=== PATIENT | female | born 1955 | race Two or more races ===

== ENCOUNTER 2018-09-27 15:56 | Emergency (ER) | payer MEDICARE, MEDICAID ==
[~2018-09-27] VITALS: Ht 152.4 cm; Wt 70.0 kg
[~2018-09-27 15:56] MED LIST: ONDA8TAB9 PO
[2018-09-27] MEDS ORDERED: normal saline 1000ML IV soln IVB ONE (16:00)
[2018-09-27] MEDS ORDERED: dexamethasone sod phosphate 10mg/ml inj IV STA (16:11)
--- NOTE | 2018-09-27 16:25 | NUR ---
BP IMPROVING WITH IVF, SEE FLOWSHEET
[2018-09-27] MEDS ORDERED: SIMV10TA6 PO (16:44)
[2018-09-27] MEDS ORDERED: TOP100T PO (16:44)
[2018-09-27] MEDS ORDERED: MONT10TA24 PO (16:44)
[2018-09-27] MEDS ORDERED: TRAZ-219 PO (16:44)
[2018-09-27] MEDS ORDERED: ALEN70TA37 PO (16:44)
[2018-09-27] MEDS ORDERED: VENL75CA61 PO (16:44)
[2018-09-27] MEDS ORDERED: OLAN10TA19 PO (16:44)
[2018-09-27] MEDS ORDERED: LEVO75TA7 PO (16:44)
[2018-09-27] MEDS ORDERED: LISI-600 PO (16:44)
[2018-09-27] MEDS ORDERED: LORA10TA7 PO (16:44)
[2018-09-27 16:45] LABS: ALANINE AMINOTRANSFERASE 16 U/L (12-78); ALBUMIN 2.8 G/DL (3.4-5.0); ALKALINE PHOSPHATASE 60 IU/L (46-116); ANION GAP 10 (8-16); ASPARTATE AMINO TRANSFERASE 11 U/L (10-37); BILIRUBIN,TOTAL 0.3 MG/DL (0.1-1.0); BLOOD UREA NITROGEN 20 MG/DL (7-18); BUN/CREATININE RATIO 14.4 (6.6-38.0); CALCIUM 7.2 MG/DL (8.5-10.1); CHLORIDE 111 MMOL/L (99-107); CREATININE 1.39 MG/DL (0.40-0.90); GLUCOSE 86 MG/DL (70-104); POTASSIUM 3.3 MMOL/L (3.5-5.1); SODIUM 142 MMOL/L (135-145); TOTAL CARBON DIOXIDE 20.7 MMOL/L (24-32); TOTAL PROTEIN 5.6 G/DL (6.4-8.2); eGFR 38 ML/MIN
[2018-09-27 16:55] LABS: ETHANOL 0.016 GM/DL (0.0-0.010); MAGNESIUM 1.6 MG/DL (1.5-2.4)
[2018-09-27 17:04] LABS: INR 1.1 INR; PROTHROMBIN TIME 10.9 SECONDS (9.0-12.0)
[2018-09-27 17:15] LABS: BASOPHILS # (AUTO) 0.1 X10'3 (0-0.2); BASOPHILS % (AUTO) 0.7 % (0-1); EOSINOPHILS # (AUTO) 0.1 X10'3 (0-0.9); EOSINOPHILS % (AUTO) 0.9 % (0-6); HEMATOCRIT 36.2 % (35.0-45.0); HEMOGLOBIN 12.2 g/dl (12.0-16.0); LYMPHOCYTES # (AUTO) 3.4 X10'3 (1.1-4.8); LYMPHOCYTES % (AUTO) 31.2 % (21-51); MEAN CORPUSCULAR HEMOGLOBIN 31.8 PG (27.0-31.0); MEAN CORPUSCULAR HGB CONC 33.8 g/dL (33.0-36.5); MEAN CORPUSCULAR VOLUME 94.2 FL (78-98); MONOCYTES # (AUTO) 1.1 X10'3 (0-0.9); MONOCYTES % (AUTO) 10.4 % (2-12); NEUTROPHILS # (AUTO) 6.3 X10'3 (1.8-7.7); NEUTROPHILS % (AUTO) 56.8 % (42-75); PLATELET COUNT 352 X10'3 (140-440); RED BLOOD COUNT 3.84 X10'6 (4.20-5.60); RED CELL DISTRIBUTION WIDTH 13.4 % (11.5-14.5)
--- NOTE | 2018-09-27 18:10 | NUR ---
PT UP TO BSC WITH RN STAND BY, NO DIZZINESS OR SYNCOPE, RODRIGO WELL. UA COLLECTED AND SE3N Addendum: 09/27/18 at 1826 by RPRATHER UA SENT TO LAB
[2018-09-27 18:25] LABS: CLARITY,URINE SLIGHTLY CLOUDY (Clear); COLOR,URINE YELLOW (Yellow); GLUCOSE, URINE NEGATIVE (Neg); KETONES,URINE TRACE mg/dl (Neg); LEUKOCYTE ESTERASE ,URINE NEGATIVE (Neg); NITRITES, URINE NEGATIVE (Neg); OCCULT BLOOD,URINE NEGATIVE (Neg); PROTEIN,URINE NEGATIVE (Neg)
[2018-09-27 18:26] LABS: UA COLLECTION TYPE CLN CATCH MIDSTREAM
[2018-09-27 18:30] LABS: SQUAMOUS EPITHELIAL CELL,UR MANY /LPF (FEW)
[2018-09-27 18:32] LABS: BACTERIA,URINE 3+ /HPF (Neg); RBC,URINE 0-2 /HPF (0-2)
[2018-09-27 18:33] LABS: TRANSITIONAL EPI CELLS,URINE FEW /HPF; WBC CLUMPS,URINE FEW /HPF (NEGATIVE)
[2018-09-27] MEDS ORDERED: cephalexin 250mg capsule PO ONE (18:35)
[2018-09-27] MEDS ORDERED: CEPH500C5 PO (18:35)
[2018-09-27 18:48] VITALS: BP 118/69
== END 2018-09-27 18:53 | disposition home or self-care (01) ==
LOC: ER 15:57
DX: R55 Syncope and collapse (principal); N39.0 Urinary tract infection, site not specified; R47.81 Slurred speech; Z90.49 Acquired absence of other specified parts of digestive tract; Z79.899 Other long term (current) drug therapy; Z88.5 Allergy status to narcotic agent; Z88.8 Allergy status to other drugs, medicaments and biological substances
CPT/HCPCS: 36415; 71045; 80053; 80320; 81001; 83605; 83735; 83880; 84443; 84484; 85025; 85610; 93005; 96374; 99284; J1100; J7030

== ENCOUNTER → 2020-10-04 | Emergency (ER) | payer BC, MEDICAID ==
[~2020-10-04] VITALS: Ht 152.4 cm; Wt 42.7 kg
[~2020-10-04] MED LIST changes: +ALEN70TA37 PO; +LEVO75TA7 PO; +LISI20TA28 PO; +LORA10TA7 PO; +MONT10TA32 PO; +OLAN10TA19 PO; +ONDA4TAB6 PO; -ONDA8TAB9 PO; +SIMV10TA98 PO; +TOP100T PO; +TRAZ-256 PO; +VENL75CA61 PO; +acetaminophen 325mg tablet PO ONE
[2020-10-04 00:15] VITALS: BP 170/80
--- NOTE | 2020-10-04 00:24 | NUR ---
she said her right upper leg hurts. able to walk.
--- NOTE | 2020-10-04 01:57 | NUR ---
working on her d/c got her a tshirt and a sweatshirt. Tech called upstairs looking for pants/warmer weather gear. Gave pt. 2 packs of wipes so she can clean her body. Pt informed to just await in her room as I am working on acquiring these things.
== END | disposition home or self-care (01) ==
LOC: ER 00:10
DX: M79.604 Pain in right leg (principal); M79.601 Pain in right arm; E78.00 Pure hypercholesterolemia, unspecified; I10 Essential (primary) hypertension; E03.9 Hypothyroidism, unspecified; F31.9 Bipolar disorder, unspecified; F20.9 Schizophrenia, unspecified; F12.90 Cannabis use, unspecified, uncomplicated; Z90.49 Acquired absence of other specified parts of digestive tract; Z59.0 Homelessness; Z88.8 Allergy status to other drugs, medicaments and biological substances; Z88.5 Allergy status to narcotic agent; Z79.899 Other long term (current) drug therapy; Y08.89XA Assault by other specified means, initial encounter; Y93.89 Activity, other specified; Y92.89 Other specified places as the place of occurrence of the external cause; Y99.8 Other external cause status
CPT/HCPCS: 99283

== ENCOUNTER 2022-07-19 10:11 | Emergency (ER) | payer BC, MEDICAID, MEDICARE ==
[~2022-07-19] VITALS: Ht 152.4 cm; Wt 65.9 kg
[~2022-07-19 10:11] MED LIST changes: +MONT-40 PO; -MONT10TA32 PO; -OLAN10TA19 PO; +OLAN10TA73 PO; -acetaminophen 325mg tablet PO ONE
[2022-07-19 11:32] LABS: BASOPHILS # (AUTO) 0.1 X10'3 (0-0.2); BASOPHILS % (AUTO) 0.9 % (0-1); EOSINOPHILS % (AUTO) 0.1 % (0-6); HEMATOCRIT 50.4 % (35.0-45.0); HEMOGLOBIN 17.3 g/dl (12.0-16.0); LYMPHOCYTES # (AUTO) 2.2 X10'3 (1.1-4.8); LYMPHOCYTES % (AUTO) 18.5 % (21-51); MEAN CORPUSCULAR HEMOGLOBIN 30.8 PG (27.0-31.0); MEAN CORPUSCULAR HGB CONC 34.4 g/dL (33.0-36.5); MEAN CORPUSCULAR VOLUME 89.7 FL (78-98); MEAN PLATELET VOLUME 7.5 FL (7.4-10.4); MONOCYTES # (AUTO) 0.6 X10'3 (0-0.9); MONOCYTES % (AUTO) 5.3 % (2-12); NEUTROPHILS # (AUTO) 8.8 X10'3 (1.8-7.7); NEUTROPHILS % (AUTO) 75.2 % (42-75); PLATELET COUNT 455 X10'3 (140-440); RED BLOOD COUNT 5.62 X10'6 (4.20-5.60); RED CELL DISTRIBUTION WIDTH 13.6 % (11.5-14.5); WHITE BLOOD COUNT 11.7 X10'3 (4.5-11.0)
[2022-07-19 11:48] LABS: ALANINE AMINOTRANSFERASE 20 U/L (12-78); ALBUMIN 4.3 G/DL (3.4-5.0); ALKALINE PHOSPHATASE 121 IU/L (46-116); ANION GAP 9 (8-16); ASPARTATE AMINO TRANSFERASE 15 U/L (10-37); BILIRUBIN,TOTAL 0.5 MG/DL (0.1-1.0); BLOOD UREA NITROGEN 13 MG/DL (7-18); BUN/CREATININE RATIO 19.4 (6.6-38.0); CALCIUM 9.8 MG/DL (8.5-10.1); CHLORIDE 104 MMOL/L (99-107); CREATININE 0.67 MG/DL (0.40-0.90); GLUCOSE 102 MG/DL (70-104); LIPASE 119 U/L (73-393); POTASSIUM 3.9 MMOL/L (3.5-5.1); SODIUM 138 MMOL/L (135-145); TOTAL CARBON DIOXIDE 25.4 MMOL/L (24-32); TOTAL PROTEIN 8.6 G/DL (6.4-8.2); eGFR 88 ML/MIN
[2022-07-19] MEDS ORDERED: normal saline 1000ML IV soln IVB ONE (12:25)
[2022-07-19] MEDS ORDERED: ondansetron/PF 4mg/2ml inj IV ONE (12:25)
[2022-07-19] MEDS ORDERED: pantoprazole 40 MG vial IV ONE (12:25)
[2022-07-19] MEDS ORDERED: pantoprazole 40MG/NS 100ML BAG 100 ML IV ONE (12:30)
[2022-07-19 13:31] LABS: CLARITY,URINE CLEAR (Clear); COLOR,URINE YELLOW (Yellow); GLUCOSE, URINE NEGATIVE (Neg); KETONES,URINE NEGATIVE (Neg); LEUKOCYTE ESTERASE ,URINE NEGATIVE (Neg); NITRITES, URINE NEGATIVE (Neg); OCCULT BLOOD,URINE SMALL (Neg); PH,URINE 5.5 (4.8-8.0); PROTEIN,URINE NEGATIVE (Neg); UA COLLECTION TYPE CLN CATCH MIDSTREAM; UROBILINOGEN,URINE 0.2 E.U/dL (0.2-1.0)
[2022-07-19] MEDS ORDERED: ONDA8TAB13 PO (13:33)
[2022-07-19] MEDS ORDERED: PANT-47 PO (13:33)
[2022-07-19 13:43] LABS: MUCUS STRANDS FEW /LPF (Neg); SQUAMOUS EPITHELIAL CELL,UR FEW /LPF (FEW)
[2022-07-19 13:44] LABS: BACTERIA,URINE FEW /HPF (Neg); RBC,URINE 0-2 /HPF (0-2); WBC,URINE 0-4 /HPF (0-4)
[2022-07-19 13:48] VITALS: BP 166/89
== END 2022-07-19 13:50 | disposition home or self-care (01) ==
LOC: ER 10:12
DX: R10.13 Epigastric pain (principal); E78.00 Pure hypercholesterolemia, unspecified; I10 Essential (primary) hypertension; E03.9 Hypothyroidism, unspecified; F31.9 Bipolar disorder, unspecified; F20.9 Schizophrenia, unspecified; Z90.89 Acquired absence of other organs; Z72.89 Other problems related to lifestyle; Z59.00 Homelessness unspecified; Z88.2 Allergy status to sulfonamides; Z88.5 Allergy status to narcotic agent; Z88.8 Allergy status to other drugs, medicaments and biological substances; Z79.899 Other long term (current) drug therapy
CPT/HCPCS: 36415; 80053; 81001; 83690; 85025; 96365; 96375; 99284; C9113; J2405; J7030

== ENCOUNTER 2022-10-13 10:17 | Emergency (ER) | payer MEDICARE, MEDICAID ==
[~2022-10-13] VITALS: Ht 152.4 cm; Wt 68.2 kg
[~2022-10-13 10:17] MED LIST changes: +ONDA8TAB13 PO; +PANT-47 PO
[2022-10-13 10:21] VITALS: BP 133/111
--- NOTE | 2022-10-13 10:31 | NUR ---
PROVIDERS MADE AWARE OF PT IN [facility] ROOM
[2022-10-13] MEDS ORDERED: TETanus/Pertussis (Acell)/Diphther VAC/PF (Tdap-Adult) 0.5ml syringe IMVAC ONE (10:45)
[2022-10-13] MEDS ORDERED: LIDOcaine 1% 30ml preserv. free vial IJ ONE (10:45)
[2022-10-13] MEDS ORDERED: bacitracin 15gm ointment TP ONE (10:45)
== END 2022-10-13 12:03 | disposition home or self-care (01) ==
LOC: ER 10:18
DX: L02.611 Cutaneous abscess of right foot (principal); I10 Essential (primary) hypertension; E78.00 Pure hypercholesterolemia, unspecified; E03.9 Hypothyroidism, unspecified; F20.9 Schizophrenia, unspecified; Z90.49 Acquired absence of other specified parts of digestive tract; Z59.00 Homelessness unspecified; Z88.2 Allergy status to sulfonamides; Z79.899 Other long term (current) drug therapy; Z88.5 Allergy status to narcotic agent; Z79.1 Long term (current) use of non-steroidal anti-inflammatories (NSAID)
CPT/HCPCS: 10060; 90471; 90715; 99284; J3490; A6449

== ENCOUNTER 2022-12-03 07:59 | Emergency (ER) | payer MEDICARE, MEDICAID ==
[~2022-12-03] VITALS: Ht 152.4 cm; Wt 66.2 kg
[2022-12-03 09:17] LABS: BASOPHILS # (AUTO) 0.1 X10'3 (0-0.2); BASOPHILS % (AUTO) 0.8 % (0-1); EOSINOPHILS % (AUTO) 0.5 % (0-6); HEMATOCRIT 49.4 % (35.0-45.0); HEMOGLOBIN 16.5 g/dl (12.0-16.0); LYMPHOCYTES # (AUTO) 1.7 X10'3 (1.1-4.8); LYMPHOCYTES % (AUTO) 18.1 % (21-51); MEAN CORPUSCULAR HEMOGLOBIN 29.2 PG (27.0-31.0); MEAN CORPUSCULAR HGB CONC 33.4 g/dL (33.0-36.5); MEAN CORPUSCULAR VOLUME 87.6 FL (78-98); MEAN PLATELET VOLUME 7.5 FL (7.4-10.4); MONOCYTES # (AUTO) 0.7 X10'3 (0-0.9); MONOCYTES % (AUTO) 7.2 % (2-12); NEUTROPHILS % (AUTO) 73.4 % (42-75); PLATELET COUNT 486 X10'3 (140-440); RED BLOOD COUNT 5.64 X10'6 (4.20-5.60); RED CELL DISTRIBUTION WIDTH 13.2 % (11.5-14.5); WHITE BLOOD COUNT 9.5 X10'3 (4.5-11.0)
[2022-12-03 09:35] LABS: ALANINE AMINOTRANSFERASE 20 U/L (12-78); ALBUMIN 4.2 G/DL (3.4-5.0); ALKALINE PHOSPHATASE 139 IU/L (46-116); ANION GAP 10 (8-16); ASPARTATE AMINO TRANSFERASE 17 U/L (10-37); BILIRUBIN,TOTAL 0.7 MG/DL (0.1-1.0); BLOOD UREA NITROGEN 12 MG/DL (7-18); BUN/CREATININE RATIO 15.6 (10.0-20.0); CALCIUM 9.4 MG/DL (8.5-10.1); CHLORIDE 104 MMOL/L (99-107); CREATININE 0.77 MG/DL (0.40-0.90); GLUCOSE 111 MG/DL (70-104); LIPASE 70 U/L (73-393); POTASSIUM 3.5 MMOL/L (3.5-5.1); SODIUM 138 MMOL/L (135-145); TOTAL CARBON DIOXIDE 24.5 MMOL/L (24-32); TOTAL PROTEIN 8.5 G/DL (6.4-8.2); eGFR 74 ML/MIN
[2022-12-03] MEDS ORDERED: normal saline 1000ML IV soln IVB ONE ×2 (11:20→11:25)
[2022-12-03] MEDS ORDERED: ondansetron/PF 4mg/2ml inj IV ONE (11:25)
[2022-12-03] MEDS ORDERED: LORazepam 2 mg/ml vial IV ONE (11:25)
[2022-12-03 13:04] VITALS: BP 169/83
--- NOTE | 2022-12-03 13:04 | NUR ---
Pt states that she is feeling better, no epsiodes of vomiting noted. Pt also states that she is bipolar but has not been on medication for the past 2 years.
[2022-12-03 13:08] LABS: CLARITY,URINE CLOUDY (Clear); GLUCOSE, URINE NEGATIVE (Neg); KETONES,URINE >=80 mg/dl (Neg); LEUKOCYTE ESTERASE ,URINE NEGATIVE (Neg); NITRITES, URINE NEGATIVE (Neg); OCCULT BLOOD,URINE TRACE-INTACT (Neg); PH,URINE 5.5 (4.8-8.0); PROTEIN,URINE 30 mg/dl (Neg); UROBILINOGEN,URINE 0.2 E.U/dL (0.2-1.0)
[2022-12-03 13:11] LABS: COLOR,URINE AMBER (Yellow); UA COLLECTION TYPE CLN CATCH MIDSTREAM
[2022-12-03 13:19] LABS: MUCUS STRANDS MODERATE /LPF (Neg)
[2022-12-03 13:22] LABS: SQUAMOUS EPITHELIAL CELL,UR MODERATE /LPF (FEW)
[2022-12-03 13:23] LABS: TRANSITIONAL EPI CELLS,URINE FEW /HPF
[2022-12-03 13:24] LABS: HYALINE CASTS 0-3 /LPF (NEGATIVE)
[2022-12-03 13:26] LABS: BACTERIA,URINE FEW /HPF (Neg); WBC,URINE 0-4 /HPF (0-4)
[2022-12-03 13:27] LABS: COARSE GRANULAR CAST 0-3 /LPF (NEGATIVE)
== END 2022-12-03 14:50 | disposition home or self-care (01) ==
LOC: ER 07:59
DX: R11.2 Nausea with vomiting, unspecified (principal); F41.9 Anxiety disorder, unspecified; E78.00 Pure hypercholesterolemia, unspecified; I10 Essential (primary) hypertension; E03.9 Hypothyroidism, unspecified; F20.9 Schizophrenia, unspecified; Z59.00 Homelessness unspecified; Z88.5 Allergy status to narcotic agent; Z88.2 Allergy status to sulfonamides; Z79.899 Other long term (current) drug therapy
CPT/HCPCS: 36415; 80053; 81001; 83690; 85025; 96361; 96374; 96375; 99284; J2060; J2405; J7030

== ENCOUNTER 2022-12-05 17:27 | Emergency (ER) | payer MEDICARE, MEDICAID ==
[~2022-12-05] VITALS: Ht 152.4 cm; Wt 68.2 kg
[2022-12-05] MEDS ORDERED: normal saline 1000ML IV soln IVB ONE (17:55)
[2022-12-05 18:31] LABS: BASOPHILS # (AUTO) 0.1 X10'3 (0-0.2); BASOPHILS % (AUTO) 0.8 % (0-1); EOSINOPHILS # (AUTO) 0.1 X10'3 (0-0.9); EOSINOPHILS % (AUTO) 1.3 % (0-6); HEMATOCRIT 43.4 % (35.0-45.0); HEMOGLOBIN 14.4 g/dl (12.0-16.0); LYMPHOCYTES # (AUTO) 2.3 X10'3 (1.1-4.8); LYMPHOCYTES % (AUTO) 20.6 % (21-51); MEAN CORPUSCULAR HEMOGLOBIN 29.4 PG (27.0-31.0); MEAN CORPUSCULAR HGB CONC 33.3 g/dL (33.0-36.5); MEAN CORPUSCULAR VOLUME 88.4 FL (78-98); MEAN PLATELET VOLUME 7.5 FL (7.4-10.4); MONOCYTES # (AUTO) 0.8 X10'3 (0-0.9); NEUTROPHILS # (AUTO) 7.8 X10'3 (1.8-7.7); NEUTROPHILS % (AUTO) 70.3 % (42-75); PLATELET COUNT 393 X10'3 (140-440); RED BLOOD COUNT 4.91 X10'6 (4.20-5.60); RED CELL DISTRIBUTION WIDTH 13.1 % (11.5-14.5); WHITE BLOOD COUNT 11.1 X10'3 (4.5-11.0)
[2022-12-05 18:34] LABS: ALANINE AMINOTRANSFERASE 29 U/L (12-78); ALBUMIN 3.8 G/DL (3.4-5.0); ALBUMIN/GLOBULIN RATIO 1.1 (1.1-1.5); ALKALINE PHOSPHATASE 116 IU/L (46-116); ANION GAP 12 (8-16); ASPARTATE AMINO TRANSFERASE 35 U/L (10-37); BILIRUBIN,TOTAL 0.8 MG/DL (0.1-1.0); BLOOD UREA NITROGEN 14 MG/DL (7-18); BUN/CREATININE RATIO 21.5 (10.0-20.0); CHLORIDE 105 MMOL/L (99-107); CREATININE 0.65 MG/DL (0.40-0.90); ETHANOL < 0.010 GM/DL (0.0-0.010); GLUCOSE 79 MG/DL (70-104); SODIUM 142 MMOL/L (135-145); TOTAL CARBON DIOXIDE 24.9 MMOL/L (24-32); TOTAL PROTEIN 7.2 G/DL (6.4-8.2); eGFR 90 ML/MIN
[2022-12-05 18:42] LABS: POTASSIUM 2.8 MMOL/L (3.5-5.1)
[2022-12-05 19:00] VITALS: BP 172/96
[2022-12-05] MEDS ORDERED: potassium Cl 20 mEq SR tablet PO STA (20:52)
[2022-12-05 22:05] LABS: URINE AMPHETAMINE SCREEN NEGATIVE (Neg); URINE BARBITUATE SCREEN NEGATIVE (Neg); URINE BENZODIAZEPINES SCREEN NEGATIVE (Neg); URINE CANNABINOID SCREEN NEGATIVE (Neg); URINE COCAINE SCREEN NEGATIVE (Neg); URINE METHADONE SCREEN NEGATIVE (Neg); URINE OPIATE SCREEN NEGATIVE (Neg); URINE PHENCYCLIDINE SCREEN NEGATIVE (Neg)
[2022-12-05 22:15] LABS: CLARITY,URINE CLEAR (Clear); COLOR,URINE STRAW (Yellow); GLUCOSE, URINE NEGATIVE (Neg); KETONES,URINE 40 mg/dl (Neg); LEUKOCYTE ESTERASE ,URINE NEGATIVE (Neg); NITRITES, URINE NEGATIVE (Neg); OCCULT BLOOD,URINE TRACE-INTACT (Neg); PH,URINE 5.5 (4.8-8.0); PROTEIN,URINE NEGATIVE (Neg); UROBILINOGEN,URINE 0.2 E.U/dL (0.2-1.0)
[2022-12-05 22:16] LABS: UA COLLECTION TYPE CLN CATCH MIDSTREAM
[2022-12-05 22:35] LABS: BACTERIA,URINE NONE SEEN /HPF (Neg); MUCUS STRANDS NONE SEEN /LPF (Neg); RBC,URINE 0-2 /HPF (0-2); SQUAMOUS EPITHELIAL CELL,UR FEW /LPF (FEW); WBC,URINE 0-4 /HPF (0-4)
== END 2022-12-05 22:20 | disposition home or self-care (01) ==
LOC: ER 17:27
DX: R42 Dizziness and giddiness (principal); F31.9 Bipolar disorder, unspecified; E78.00 Pure hypercholesterolemia, unspecified; I10 Essential (primary) hypertension; E03.9 Hypothyroidism, unspecified; F20.9 Schizophrenia, unspecified; Z90.49 Acquired absence of other specified parts of digestive tract; Z88.2 Allergy status to sulfonamides; Z79.899 Other long term (current) drug therapy; Z88.5 Allergy status to narcotic agent; Z88.8 Allergy status to other drugs, medicaments and biological substances
CPT/HCPCS: 36415; 71045; 80053; 80305; 80320; 81001; 82140; 84484; 85025; 96360; 99284; J7030

== ENCOUNTER 2022-12-08 07:13 | Emergency (ER) | payer MEDICARE, MEDICAID ==
[~2022-12-08] VITALS: Ht 152.4 cm; Wt 70.5 kg
[2022-12-08 08:04] VITALS: BP 154/99
--- NOTE | 2022-12-08 09:42 | NUR ---
attempt ekg, pt not in lobby. Per ER reg, pt walked out with all belongings. Will attempt if pt return
== END 2022-12-08 10:18 | disposition left against medical advice (07) ==
LOC: ER 07:13
DX: Z00.00 Encounter for general adult medical examination without abnormal findings (principal); E78.00 Pure hypercholesterolemia, unspecified; I10 Essential (primary) hypertension; E03.9 Hypothyroidism, unspecified; F31.9 Bipolar disorder, unspecified; Z88.2 Allergy status to sulfonamides; Z98.890 Other specified postprocedural states; Z59.00 Homelessness unspecified
CPT/HCPCS: 99281

== ENCOUNTER 2023-02-12 20:35 | Emergency (ER) | payer MEDICARE, MEDICAID ==
[~2023-02-12] VITALS: Ht 153 cm; Wt 70.5 kg
[2023-02-12 21:04] VITALS: TEMP 97.7
[2023-02-12 22:11] LABS: BASOPHILS # (AUTO) 0.1 X10'3 (0-0.2); BASOPHILS % (AUTO) 0.7 % (0-1); EOSINOPHILS % (AUTO) 0.1 % (0-6); HEMATOCRIT 42.2 % (35.0-45.0); HEMOGLOBIN 14.1 g/dl (12.0-16.0); LYMPHOCYTES % (AUTO) 6.4 % (21-51); MEAN CORPUSCULAR HEMOGLOBIN 29.5 PG (27.0-31.0); MEAN CORPUSCULAR HGB CONC 33.3 g/dL (33.0-36.5); MEAN CORPUSCULAR VOLUME 88.5 FL (78-98); MEAN PLATELET VOLUME 7.9 FL (7.4-10.4); MONOCYTES # (AUTO) 0.6 X10'3 (0-0.9); NEUTROPHILS # (AUTO) 13.2 X10'3 (1.8-7.7); NEUTROPHILS % (AUTO) 88.8 % (42-75); PLATELET COUNT 514 X10'3 (140-440); RED BLOOD COUNT 4.77 X10'6 (4.20-5.60); RED CELL DISTRIBUTION WIDTH 13.8 % (11.5-14.5); WHITE BLOOD COUNT 14.8 X10'3 (4.5-11.0)
[2023-02-12 22:12] LABS: BILIRUBIN,URINE MODERATE (Neg); CLARITY,URINE TURBID (Clear); COLOR,URINE YELLOW (Yellow); GLUCOSE, URINE NEGATIVE (Neg); KETONES,URINE 15 mg/dl (Neg); LEUKOCYTE ESTERASE ,URINE NEGATIVE (Neg); NITRITES, URINE NEGATIVE (Neg); OCCULT BLOOD,URINE NEGATIVE (Neg); PROTEIN,URINE TRACE mg/dl (Neg)
[2023-02-12 22:13] LABS: UA COLLECTION TYPE CLN CATCH MIDSTREAM
[2023-02-12 22:25] LABS: ALANINE AMINOTRANSFERASE 41 U/L (12-78); ALBUMIN 3.6 G/DL (3.4-5.0); ALBUMIN/GLOBULIN RATIO 0.8 (1.1-1.5); ALKALINE PHOSPHATASE 89 IU/L (46-116); ANION GAP 9 (8-16); ASPARTATE AMINO TRANSFERASE 43 U/L (10-37); BILIRUBIN,TOTAL 1.2 MG/DL (0.1-1.0); BLOOD UREA NITROGEN 18 MG/DL (7-18); BUN/CREATININE RATIO 18.2 (10.0-20.0); CALCIUM 9.1 MG/DL (8.5-10.1); CHLORIDE 105 MMOL/L (99-107); CREATININE 0.99 MG/DL (0.40-0.90); GLUCOSE 143 MG/DL (70-104); LIPASE 77 U/L (73-393); SODIUM 146 MMOL/L (135-145); TOTAL PROTEIN 7.9 G/DL (6.4-8.2); eCRCL 39 ML/MIN; eGFR 56 ML/MIN
[2023-02-12 22:29] LABS: RBC,URINE NONE SEEN /HPF (0-2); WBC,URINE NONE SEEN /HPF (0-4)
[2023-02-12 22:31] LABS: POTASSIUM 2.6 MMOL/L (3.5-5.1)
[2023-02-12 22:34] LABS: AMORPHOUS URATES 3+; BACTERIA,URINE NONE SEEN /HPF (Neg); MUCUS STRANDS FEW /LPF (Neg); SQUAMOUS EPITHELIAL CELL,UR FEW /LPF (FEW)
[2023-02-12 22:36] LABS: CAL OXALATE CRYSTALS FEW /HPF (NEGATIVE)
[2023-02-12] MEDS ORDERED: potassium Cl 20 mEq SR tablet PO STA (23:31)
[2023-02-12] MEDS ORDERED: ondansetron 4mg rapidly disintigrating tab PO ONE (23:35)
[2023-02-13] MEDS ORDERED: metoclopramide 5 mg/ml inj IV ONE (00:25)
[2023-02-13] MEDS ORDERED: sodium chloride 0.45% 1,000 ML IV ONE (00:25)
[2023-02-13] MEDS ORDERED: diphenhydrAMINE 50 mg/ml inj IV ONE (00:30)
[2023-02-13 02:16] LABS: URINE AMPHETAMINE SCREEN NEGATIVE (Neg); URINE BARBITUATE SCREEN NEGATIVE (Neg); URINE BENZODIAZEPINES SCREEN NEGATIVE (Neg); URINE CANNABINOID SCREEN POSITIVE (Neg); URINE COCAINE SCREEN NEGATIVE (Neg); URINE METHADONE SCREEN NEGATIVE (Neg); URINE OPIATE SCREEN NEGATIVE (Neg); URINE PHENCYCLIDINE SCREEN NEGATIVE (Neg)
[2023-02-13] MEDS ORDERED: BISA-78 PO (02:52)
[2023-02-13] MEDS ORDERED: POTA-207 PO (02:52)
[2023-02-13 03:05] VITALS: BP 128/75; PULSE 82; RESP 16; O2SAT 99
== END 2023-02-13 03:07 | disposition home or self-care (01) ==
LOC: ER 20:35
DX: K59.00 Constipation, unspecified (principal); E87.6 Hypokalemia; E78.00 Pure hypercholesterolemia, unspecified; I10 Essential (primary) hypertension; E03.9 Hypothyroidism, unspecified; F31.9 Bipolar disorder, unspecified; F12.90 Cannabis use, unspecified, uncomplicated; Z88.2 Allergy status to sulfonamides; Z88.5 Allergy status to narcotic agent; Z79.899 Other long term (current) drug therapy; Z90.710 Acquired absence of both cervix and uterus; Z98.890 Other specified postprocedural states
CPT/HCPCS: 36415; 70450; 74176; 80053; 80305; 81001; 83690; 84145; 85025; 96361; 96374; 96375; 99285; J1200; J2765; J3490

== ENCOUNTER 2023-02-21 18:49 | Emergency (ER) | payer MEDICARE, MEDICAID ==
[~2023-02-21] VITALS: Ht 157.5 cm; Wt 70.5 kg
[~2023-02-21 18:49] MED LIST changes: +BISA-78 PO; +POTA-207 PO
[2023-02-21 19:43] VITALS: BP 154/89; PULSE 103; RESP 18; TEMP 99; O2SAT 100
[2023-02-21] MEDS ORDERED: clindamycin 150mg capsule PO ONE (22:20)
[2023-02-21] MEDS ORDERED: ondansetron 4mg rapidly disintigrating tab PO ONE (22:20)
[2023-02-21] MEDS ORDERED: CLIN150C2 PO (22:24)
== END 2023-02-21 22:42 | disposition home or self-care (01) ==
LOC: ER 18:49
DX: L02.512 Cutaneous abscess of left hand (principal); L02.511 Cutaneous abscess of right hand; E78.00 Pure hypercholesterolemia, unspecified; I11.0 Hypertensive heart disease with heart failure; E03.9 Hypothyroidism, unspecified; F20.9 Schizophrenia, unspecified; F12.10 Cannabis abuse, uncomplicated; Z59.00 Homelessness unspecified; Z79.899 Other long term (current) drug therapy; Z88.2 Allergy status to sulfonamides
CPT/HCPCS: 99283

== ENCOUNTER 2023-02-23 19:27 | Emergency (ER) | payer MEDICAID, MEDICARE ==
[~2023-02-23] VITALS: Ht 152.4 cm; Wt 72.7 kg
[~2023-02-23 19:27] MED LIST changes: +CLIN150C2 PO
[2023-02-23] MEDS ORDERED: ondansetron 4mg rapidly disintigrating tab PO ONE (19:40)
[2023-02-24 00:57] LABS: BASOPHILS # (AUTO) 0.1 X10'3 (0-0.2); HEMOGLOBIN 12.2 g/dl (12.0-16.0); MEAN PLATELET VOLUME 7.2 FL (7.4-10.4)
[2023-02-24 00:59] LABS: BASOPHILS % (AUTO) 1.2 % (0-1); EOSINOPHILS # (AUTO) 0.1 X10'3 (0-0.9); EOSINOPHILS % (AUTO) 0.8 % (0-6); HEMATOCRIT 36.4 % (35.0-45.0); LYMPHOCYTES # (AUTO) 1.6 X10'3 (1.1-4.8); LYMPHOCYTES % (AUTO) 22.6 % (21-51); MEAN CORPUSCULAR HEMOGLOBIN 29.9 PG (27.0-31.0); MEAN CORPUSCULAR HGB CONC 33.5 g/dL (33.0-36.5); MEAN CORPUSCULAR VOLUME 89.1 FL (78-98); MONOCYTES # (AUTO) 0.7 X10'3 (0-0.9); MONOCYTES % (AUTO) 10.1 % (2-12); NEUTROPHILS # (AUTO) 4.5 X10'3 (1.8-7.7); NEUTROPHILS % (AUTO) 65.3 % (42-75); PLATELET COUNT 373 X10'3 (140-440); RED BLOOD COUNT 4.08 X10'6 (4.20-5.60); RED CELL DISTRIBUTION WIDTH 13.5 % (11.5-14.5); WHITE BLOOD COUNT 6.9 X10'3 (4.5-11.0)
[2023-02-24 01:09] LABS: ALANINE AMINOTRANSFERASE 17 U/L (12-78); ALBUMIN 2.9 G/DL (3.4-5.0); ALBUMIN/GLOBULIN RATIO 0.7 (1.1-1.5); ALKALINE PHOSPHATASE 79 IU/L (46-116); ANION GAP 12 (8-16); ASPARTATE AMINO TRANSFERASE 40 U/L (10-37); BILIRUBIN,TOTAL 0.8 MG/DL (0.1-1.0); BLOOD UREA NITROGEN 9 MG/DL (7-18); BUN/CREATININE RATIO 14.5 (10.0-20.0); CALCIUM 8.8 MG/DL (8.5-10.1); CHLORIDE 100 MMOL/L (99-107); CREATININE 0.62 MG/DL (0.40-0.90); GLUCOSE 55 MG/DL (70-104); MAGNESIUM 1.8 MG/DL (1.5-2.4); SODIUM 139 MMOL/L (135-145); TOTAL CARBON DIOXIDE 26.7 MMOL/L (24-32); TOTAL PROTEIN 6.9 G/DL (6.4-8.2); eCRCL 62 ML/MIN; eGFR > 90 ML/MIN
[2023-02-24 01:16] LABS: POTASSIUM 2.9 MMOL/L (3.5-5.1)
[2023-02-24] MEDS ORDERED: potassium Cl 20mEq/100mL bag 100 ML IV SCH (01:20)
[2023-02-24 03:06] VITALS: BP 120/66; PULSE 79; RESP 16; TEMP 98.6; O2SAT 95
[2023-02-24] MEDS ORDERED: potassium Cl 20 mEq SR tablet PO STA (04:44)
--- NOTE | 2023-02-24 05:55 | NUR ---
iv dc'd pt being discharged dressing applied
== END 2023-02-24 05:57 | disposition home or self-care (01) ==
LOC: ER 19:27
DX: E87.6 Hypokalemia (principal); Z20.822 Contact with and (suspected) exposure to COVID-19; R11.2 Nausea with vomiting, unspecified; R19.7 Diarrhea, unspecified; Z59.00 Homelessness unspecified; E78.00 Pure hypercholesterolemia, unspecified; I10 Essential (primary) hypertension; E03.9 Hypothyroidism, unspecified; F31.9 Bipolar disorder, unspecified; F20.9 Schizophrenia, unspecified
CPT/HCPCS: 36415; 80053; 82948; 83735; 85025; 87502; 87503; 87811; 93005; 96365; 96366; 99284; J3480; J7040

== ENCOUNTER 2023-02-28 02:26 | Emergency (ER) | payer MEDICARE, MEDICAID ==
[~2023-02-28] VITALS: Ht 152.4 cm; Wt 70.5 kg
--- NOTE | 2023-02-28 03:34 | NUR ---
PT DOESNT HAVE ANY ABD PAIN AND ABD SNT
[2023-02-28 03:46] LABS: EOSINOPHILS # (AUTO) 0.1 X10'3 (0-0.9); EOSINOPHILS % (AUTO) 0.7 % (0-6); MEAN PLATELET VOLUME 7.6 FL (7.4-10.4)
[2023-02-28 03:48] LABS: BASOPHILS # (AUTO) 0.2 X10'3 (0-0.2); BASOPHILS % (AUTO) 1.4 % (0-1); HEMATOCRIT 40.2 % (35.0-45.0); MEAN CORPUSCULAR HEMOGLOBIN 28.9 PG (27.0-31.0); MEAN CORPUSCULAR HGB CONC 32.5 g/dL (33.0-36.5); MEAN CORPUSCULAR VOLUME 89.1 FL (78-98); MONOCYTES # (AUTO) 1.3 X10'3 (0-0.9); MONOCYTES % (AUTO) 10.4 % (2-12); NEUTROPHILS % (AUTO) 63.5 % (42-75); PLATELET COUNT 527 X10'3 (140-440); RED BLOOD COUNT 4.51 X10'6 (4.20-5.60); RED CELL DISTRIBUTION WIDTH 14.3 % (11.5-14.5); WHITE BLOOD COUNT 12.6 X10'3 (4.5-11.0)
[2023-02-28 04:27] LABS: ALANINE AMINOTRANSFERASE 16 U/L (12-78); ALBUMIN 2.9 G/DL (3.4-5.0); ALBUMIN/GLOBULIN RATIO 0.7 (1.1-1.5); ALKALINE PHOSPHATASE 69 IU/L (46-116); ANION GAP 9 (8-16); ASPARTATE AMINO TRANSFERASE 19 U/L (10-37); BILIRUBIN,TOTAL 0.4 MG/DL (0.1-1.0); BLOOD UREA NITROGEN 30 MG/DL (7-18); BUN/CREATININE RATIO 23.8 (10.0-20.0); CALCIUM 8.9 MG/DL (8.5-10.1); CHLORIDE 100 MMOL/L (99-107); CREATININE 1.26 MG/DL (0.40-0.90); GLUCOSE 112 MG/DL (70-104); SODIUM 136 MMOL/L (135-145); TOTAL CARBON DIOXIDE 27.4 MMOL/L (24-32); TOTAL PROTEIN 6.9 G/DL (6.4-8.2); eCRCL 30 ML/MIN; eGFR 42 ML/MIN
[2023-02-28] MEDS ORDERED: normal saline 1000ML IV soln IVB ONE (04:30)
[2023-02-28 04:31] LABS: POTASSIUM 2.8 MMOL/L (3.5-5.1)
[2023-02-28 04:32] LABS: PLATELET ESTIMATE INCREASED; TOTAL CELLS COUNTED 100
[2023-02-28] MEDS ORDERED: potassium Cl 20 mEq SR tablet PO STA (04:34)
[2023-02-28] MEDS ORDERED: potassium Cl 20mEq/100mL bag 100 ML IV SCH (04:35)
[2023-02-28] MEDS ORDERED: magnesium 2GM in 50ml NS 50 ML IV ONE (04:35)
[2023-02-28] MEDS ORDERED: POTA-205 PO (04:36)
[2023-02-28 04:37] LABS: ANISOCYTOSIS 2+; MICROCYTOSIS 1+
[2023-02-28 05:38] VITALS: TEMP 98.5
--- NOTE | 2023-02-28 06:22 | NUR ---
BEDSIDE REPORT RECEIVED FROM TRINI TRINH. PT ALERT AND TALKING. DENIES PAIN. MEDICATION INFUSING PER ORDERS. NO DISTRESS NOTED.
--- NOTE | 2023-02-28 08:00 | NUR ---
SLEEPING IN BED, NO DISTRESS NOTED.
[2023-02-28 08:45] VITALS: BP 115/66; PULSE 78; RESP 20; O2SAT 99
--- NOTE | 2023-02-28 09:05 | NUR ---
PROVIDED WITH FOOD FOR DISCHARGE. PROVIDED WITH PROVIDER LIST FOR [place].
== END 2023-02-28 09:27 | disposition home or self-care (01) ==
LOC: ER 02:26
DX: E87.6 Hypokalemia (principal)
CPT/HCPCS: 36415; 80053; 85007; 85025; 96365; 96368; 99284; J3475; J3480; J7030; J7040

== ENCOUNTER 2023-03-05 03:42 | Emergency (ER) | payer MEDICARE, MEDICAID ==
[~2023-03-05] VITALS: Ht 149.9 cm; Wt 54.5 kg
[~2023-03-05 03:42] MED LIST changes: -CLIN150C2 PO; +POTA-205 PO
[2023-03-05 03:46] VITALS: BP 149/70; PULSE 92; O2SAT 100
[2023-03-05] MEDS ORDERED: morphine 4 MG/ML inj SYRINge IV PRN (04:10)
[2023-03-05] MEDS ORDERED: ondansetron/PF 4mg/2ml inj IV ONE (04:10)
[2023-03-05] MEDS ORDERED: normal saline 1000ML IV soln IVB ONE (04:10)
--- NOTE | 2023-03-05 04:42 | NUR ---
pt is not interested in getting any care here. She did ask for clean clothes and is taking a bird bath in the sink. informed.
[2023-03-05 04:54] VITALS: RESP 16
--- NOTE | 2023-03-05 05:01 | NUR ---
Pt informed of discharge, then began to do her laundry in the sink. Pt informed that using the ER sink for laundry was inappropriate. Security notified
== END 2023-03-05 05:06 | disposition home or self-care (01) ==
LOC: ER 03:42
DX: R10.30 Lower abdominal pain, unspecified (principal); I10 Essential (primary) hypertension; E78.00 Pure hypercholesterolemia, unspecified; E03.9 Hypothyroidism, unspecified; F20.9 Schizophrenia, unspecified; F12.10 Cannabis abuse, uncomplicated; Z90.49 Acquired absence of other specified parts of digestive tract; Z59.00 Homelessness unspecified
CPT/HCPCS: 99283

== ENCOUNTER 2023-03-16 20:35 | Emergency (ER) | payer MEDICARE, MEDICAID ==
[~2023-03-16] VITALS: Ht 152.4 cm; Wt 46.8 kg
[2023-03-17] MEDS ORDERED: loperamide 2mg capsule PO ONE (02:10)
[2023-03-17] MEDS ORDERED: diphenhydrAMINE 25mg capsule PO ONE (02:10)
[2023-03-17] MEDS ORDERED: metoclopramide 10mg tablet PO ONE (02:10)
[2023-03-17] MEDS ORDERED: ONDA8TAB13 PO (02:15)
[2023-03-17] MEDS ORDERED: LOPE2TAB25 PO (02:15)
[2023-03-17] MEDS ORDERED: potassium Cl 20 mEq SR tablet PO STA (02:16)
[2023-03-17 02:32] VITALS: BP 156/81; PULSE 91; RESP 18; O2SAT 100
[2023-03-17 02:48] VITALS: TEMP 98.5
== END 2023-03-17 02:50 | disposition home or self-care (01) ==
LOC: ER 20:36
DX: R19.7 Diarrhea, unspecified (principal); R11.2 Nausea with vomiting, unspecified; E78.00 Pure hypercholesterolemia, unspecified; I11.0 Hypertensive heart disease with heart failure; F31.9 Bipolar disorder, unspecified; Z79.899 Other long term (current) drug therapy; Z79.1 Long term (current) use of non-steroidal anti-inflammatories (NSAID); Z79.82 Long term (current) use of aspirin
CPT/HCPCS: 99284; Q0163

== ENCOUNTER 2023-04-04 09:30 | Emergency (ER) | payer MEDICARE, MEDICAID ==
[~2023-04-04] VITALS: Ht 160 cm; Wt 65.0 kg
[~2023-04-04 09:30] MED LIST changes: +LOPE2TAB25 PO; -POTA-207 PO
[2023-04-04 09:39] VITALS: BP 159/102; PULSE 101; RESP 18; TEMP 99; O2SAT 98
== END 2023-04-04 15:07 | disposition left against medical advice (07) ==
LOC: ER 09:30
DX: R11.2 Nausea with vomiting, unspecified (principal); N95.1 Menopausal and female climacteric states; Z53.21 Procedure and treatment not carried out due to patient leaving prior to being seen by health care provider
CPT/HCPCS: 99281

== ENCOUNTER 2023-04-09 04:27 | Emergency (ER) | payer MEDICARE, MEDICAID | END 2023-04-09 06:18 | disposition left against medical advice (07) | LOC: ER 04:27 | DX: R51.9 Headache, unspecified (principal); Z53.21 Procedure and treatment not carried out due to patient leaving prior to being seen by health care provider ==

== ENCOUNTER 2023-04-16 13:27 | Emergency (ER) | payer MEDICARE, MEDICAID ==
[~2023-04-16] VITALS: Ht 152.4 cm; Wt 50.0 kg
[2023-04-16 15:52] LABS: BASOPHILS # (AUTO) 0.1 X10'3 (0-0.2); EOSINOPHILS % (AUTO) 0.6 % (0-6); HEMATOCRIT 40.1 % (35.0-45.0); HEMOGLOBIN 13.1 g/dl (12.0-16.0); LYMPHOCYTES # (AUTO) 1.8 X10'3 (1.1-4.8); MEAN CORPUSCULAR HEMOGLOBIN 28.8 PG (27.0-31.0); MEAN CORPUSCULAR HGB CONC 32.6 g/dL (33.0-36.5); MEAN CORPUSCULAR VOLUME 88.2 FL (78-98); MEAN PLATELET VOLUME 7.3 FL (7.4-10.4); MONOCYTES # (AUTO) 0.9 X10'3 (0-0.9); MONOCYTES % (AUTO) 11.2 % (2-12); NEUTROPHILS # (AUTO) 5.4 X10'3 (1.8-7.7); NEUTROPHILS % (AUTO) 65.2 % (42-75); PLATELET COUNT 355 X10'3 (140-440); RED BLOOD COUNT 4.54 X10'6 (4.20-5.60); WHITE BLOOD COUNT 8.2 X10'3 (4.5-11.0)
[2023-04-16 16:09] LABS: ALANINE AMINOTRANSFERASE 15 U/L (12-78); ALBUMIN 3.4 G/DL (3.4-5.0); ALBUMIN/GLOBULIN RATIO 0.8 (1.1-1.5); ALKALINE PHOSPHATASE 78 IU/L (46-116); ANION GAP 6 (8-16); ASPARTATE AMINO TRANSFERASE 14 U/L (10-37); BILIRUBIN,TOTAL 0.6 MG/DL (0.1-1.0); BLOOD UREA NITROGEN 15 MG/DL (7-18); BUN/CREATININE RATIO 25.4 (10.0-20.0); CALCIUM 9.2 MG/DL (8.5-10.1); CHLORIDE 104 MMOL/L (99-107); CREATININE 0.59 MG/DL (0.40-0.90); ETHANOL < 10 MG/DL (<10); GLUCOSE 100 MG/DL (70-104); SODIUM 143 MMOL/L (135-145); TOTAL CARBON DIOXIDE 33.2 MMOL/L (24-32); TOTAL PROTEIN 7.5 G/DL (6.4-8.2); eCRCL 65 ML/MIN; eGFR > 90 ML/MIN
[2023-04-16 16:28] LABS: POTASSIUM 2.9 MMOL/L (3.5-5.1)
[2023-04-16] MEDS ORDERED: potassium chloride 8mEq ER tablet PO ONE (16:40)
[2023-04-16] MEDS ORDERED: potassium Cl 20 mEq SR tablet PO ONE (16:45)
[2023-04-16 16:48] LABS: MAGNESIUM 1.9 MG/DL (1.5-2.4)
[2023-04-16 17:14] LABS: BILIRUBIN,URINE NEGATIVE (Neg); CLARITY,URINE CLOUDY (Clear); COLOR,URINE YELLOW (Yellow); GLUCOSE, URINE NEGATIVE (Neg); KETONES,URINE TRACE mg/dl (Neg); LEUKOCYTE ESTERASE ,URINE TRACE (Neg); NITRITES, URINE POSITIVE (Neg); OCCULT BLOOD,URINE NEGATIVE (Neg); PH,URINE 7.5 (4.8-8.0); PROTEIN,URINE NEGATIVE (Neg)
[2023-04-16 17:17] LABS: UA COLLECTION TYPE CLN CATCH MIDSTREAM
[2023-04-16 17:20] LABS: BACTERIA,URINE 3+ /HPF (Neg)
[2023-04-16 17:22] LABS: RBC,URINE 0-2 /HPF (0-2); SQUAMOUS EPITHELIAL CELL,UR MANY /LPF (FEW)
[2023-04-16 17:23] LABS: TRANSITIONAL EPI CELLS,URINE FEW /HPF
[2023-04-16 17:26] LABS: URINE AMPHETAMINE SCREEN NEGATIVE (Neg)
[2023-04-16 17:27] LABS: URINE BARBITUATE SCREEN NEGATIVE (Neg); URINE BENZODIAZEPINES SCREEN NEGATIVE (Neg); URINE CANNABINOID SCREEN POSITIVE (Neg); URINE COCAINE SCREEN NEGATIVE (Neg); URINE OPIATE SCREEN NEGATIVE (Neg); URINE PHENCYCLIDINE SCREEN NEGATIVE (Neg)
[2023-04-16] MEDS ORDERED: OLANZapine 5mg rapidly disint. tablet PO STA (18:02)
[2023-04-16] MEDS ORDERED: CefTRIAXone 1000mg IM Kit (w/lidocaine diluent) IM ONE (18:05)
[2023-04-17] MEDS ORDERED: OLANZapine 5mg rapidly disint. tablet PO ONE (06:05)
[2023-04-17] MEDS ORDERED: LORazepam 1 MG tablet PO ONE (11:40)
[2023-04-17] MEDS ORDERED: NO HOME MEDS (19:46)
[2023-04-17] MEDS: OLANZapine 5mg rapidly disint. tablet PO SCH (20:32)
[2023-04-18] MEDS: OLANZapine 5mg rapidly disint. tablet PO SCH ×2 (07:11→20:04)
[2023-04-18] MEDS ORDERED: LORazepam 1 MG tablet PO ONE (09:30)
[2023-04-19 05:56] VITALS: BP 152/69; PULSE 86; TEMP 97.5; O2SAT 100
[2023-04-19] MEDS: OLANZapine 5mg rapidly disint. tablet PO SCH (07:03)
[2023-04-19 07:50] VITALS: RESP 16
[2023-06-28] MEDS ORDERED: LOPE-144 PO ×2 (02:34)
[2023-06-28] MEDS ORDERED: POTA-207 PO ×2 (02:34)
[2023-06-28] MEDS ORDERED: GABA-530 PO (07:42)
[2023-06-28] MEDS ORDERED: DIVA-74 PO (07:42)
[2023-06-29] MEDS ORDERED: POTA-207 PO (12:04)
[2023-06-29] MEDS ORDERED: LOPE2TAB25 PO (12:04)
== END 2023-04-19 13:05 | disposition home or self-care (01) ==
LOC: ER 13:27
DX: F20.9 Schizophrenia, unspecified (principal); Z20.822 Contact with and (suspected) exposure to COVID-19; E87.6 Hypokalemia; E78.00 Pure hypercholesterolemia, unspecified; I10 Essential (primary) hypertension; E03.9 Hypothyroidism, unspecified; F12.90 Cannabis use, unspecified, uncomplicated; Z88.2 Allergy status to sulfonamides; Z88.8 Allergy status to other drugs, medicaments and biological substances; Z88.5 Allergy status to narcotic agent; Z79.899 Other long term (current) drug therapy; Z90.710 Acquired absence of both cervix and uterus; Z98.890 Other specified postprocedural states
CPT/HCPCS: 36415; 80053; 80305; 80320; 81001; 83735; 85025; 87811; 96372; 99285; J0696; 93005

== ENCOUNTER 2023-05-18 20:13 | Emergency (ER) | payer MEDICARE, MEDICAID ==
[~2023-05-18] VITALS: Ht 149.9 cm; Wt 58.5 kg
[~2023-05-18 20:13] MED LIST changes: -ALEN70TA37 PO; -BISA-78 PO; -LEVO75TA7 PO; -LISI20TA28 PO; -LOPE2TAB25 PO; -LORA10TA7 PO; -MONT-40 PO; +NO HOME MEDS; -OLAN10TA73 PO; -ONDA4TAB6 PO; -ONDA8TAB13 PO; -PANT-47 PO; -POTA-205 PO; -SIMV10TA98 PO; -TOP100T PO; -TRAZ-256 PO; -VENL75CA61 PO
[2023-05-18 20:35] VITALS: BP 110/74; PULSE 94; RESP 18; TEMP 97.8; O2SAT 98
[2023-05-19] MEDS ORDERED: ibuprofen tablet 400 MG TABLET PO ONE (00:10)
[2023-05-19] MEDS ORDERED: ibuprofen tablet 400 MG TABLET ONE ×2 (00:21→00:23)
== END 2023-05-19 00:30 | disposition home or self-care (01) ==
LOC: ER 20:14
DX: S29.011A Strain of muscle and tendon of front wall of thorax, initial encounter (principal); M94.0 Chondrocostal junction syndrome [Tietze]; X58.XXXA Exposure to other specified factors, initial encounter; Y93.89 Activity, other specified; Y92.89 Other specified places as the place of occurrence of the external cause; Y99.8 Other external cause status
CPT/HCPCS: 71045; 99283

== ENCOUNTER 2024-05-16 10:16 | Inpatient (IN) | payer MEDICARE, OTHER ==
[~2024-05-16] VITALS: Ht 149.9 cm; Wt 56.6 kg
[~2024-05-16 10:16] MED LIST changes: +DIVA-74 PO; +GABA-530 PO; +LOPE2TAB25 PO; -NO HOME MEDS; +ONDA-243 PO; +POTA-207 PO
[2024-05-16 10:45] LABS: BASOPHILS % (AUTO) 0.3 % (0-1); EOSINOPHILS # (AUTO) 0.1 X10'3 (0-0.9); EOSINOPHILS % (AUTO) 1.4 % (0-6); HEMATOCRIT 39.7 % (35.0-45.0); HEMOGLOBIN 13.2 g/dl (12.0-16.0); LYMPHOCYTES # (AUTO) 2.3 X10'3 (1.1-4.8); LYMPHOCYTES % (AUTO) 24.4 % (21-51); MEAN CORPUSCULAR HEMOGLOBIN 31.5 PG (27.0-31.0); MEAN CORPUSCULAR HGB CONC 33.3 g/dL (33.0-36.5); MEAN CORPUSCULAR VOLUME 94.7 FL (78-98); MEAN PLATELET VOLUME 7.4 FL (7.4-10.4); MONOCYTES # (AUTO) 0.9 X10'3 (0-0.9); MONOCYTES % (AUTO) 9.6 % (2-12); NEUTROPHILS # (AUTO) 5.9 X10'3 (1.8-7.7); NEUTROPHILS % (AUTO) 64.3 % (42-75); PLATELET COUNT 305 X10'3 (140-440); RED BLOOD COUNT 4.19 X10'6 (4.20-5.60); RED CELL DISTRIBUTION WIDTH 12.9 % (11.5-14.5); WHITE BLOOD COUNT 9.2 X10'3 (4.5-11.0)
[2024-05-16 11:12] LABS: ALBUMIN 3.5 G/DL (3.4-5.0); ANION GAP 10 (8-16); BLOOD UREA NITROGEN 23 MG/DL (7-18); BUN/CREATININE RATIO 37.7 (10.0-20.0); CHLORIDE 105 MMOL/L (99-107); CREATININE 0.61 MG/DL (0.40-0.90); GLUCOSE 91 MG/DL (70-104); POTASSIUM 4.2 MMOL/L (3.5-5.1); SODIUM 141 MMOL/L (135-145); THYROID STIMULATING HORMONE 2.64 ulU/ml (0.34-4.50); TOTAL CARBON DIOXIDE 26.2 MMOL/L (24-32); eCRCL 59 ML/MIN; eGFR > 90 ML/MIN
[2024-05-16 11:15] LABS: ETHANOL < 10 MG/DL (<10)
[2024-05-16 11:23] LABS: BILIRUBIN,URINE NEGATIVE (Neg); CLARITY,URINE CLOUDY (Clear); COLOR,URINE STRAW (Yellow); GLUCOSE, URINE NEGATIVE (Neg); KETONES,URINE NEGATIVE (Neg); LEUKOCYTE ESTERASE ,URINE LARGE (Neg); NITRITES, URINE POSITIVE (Neg); OCCULT BLOOD,URINE TRACE-INTACT (Neg); PROTEIN,URINE NEGATIVE (Neg); UROBILINOGEN,URINE 0.2 E.U/dL (0.2-1.0)
[2024-05-16 11:27] LABS: UA COLLECTION TYPE CLN CATCH MIDSTREAM
[2024-05-16 11:30] LABS: BACTERIA,URINE 3+ /HPF (Neg); RBC,URINE 0-2 /HPF (0-2); SQUAMOUS EPITHELIAL CELL,UR FEW /LPF (FEW); WBC,URINE TNTC /HPF (0-4)
[2024-05-16 11:31] LABS: WBC CLUMPS,URINE FEW /HPF (NEGATIVE)
[2024-05-16] MEDS ORDERED: loperamide 2mg capsule PO PRN (11:35)
[2024-05-16 11:38] LABS: URINE AMPHETAMINE SCREEN NEGATIVE (Neg); URINE BARBITUATE SCREEN NEGATIVE (Neg); URINE BENZODIAZEPINES SCREEN NEGATIVE (Neg); URINE CANNABINOID SCREEN NEGATIVE (Neg); URINE COCAINE SCREEN NEGATIVE (Neg); URINE METHADONE SCREEN NEGATIVE (Neg); URINE OPIATE SCREEN NEGATIVE (Neg); URINE PHENCYCLIDINE SCREEN NEGATIVE (Neg)
[2024-05-16 11:53] VITALS: BP 124/70; PULSE 67; RESP 18; TEMP 98.2; O2SAT 99
[2024-05-16 12:09] VITALS: RESP 18; O2SAT 99
[2024-05-16] MEDS ORDERED: LORA-269 PO (13:16)
[2024-05-16] MEDS ORDERED: DIVA125C2 PO (13:16)
[2024-05-16] MEDS ORDERED: MIRT-142 PO (13:16)
[2024-05-16] MEDS ORDERED: OLAN15TA97 PO (13:16)
[2024-05-16] MEDS ORDERED: ESCI20TA39 PO (13:16)
[2024-05-16] MEDS: lactose-reduced food (Ensure Enlive) - 237ml bottle PO SCH (18:13)
[2024-05-16 19:00] VITALS: RESP 20; O2SAT 97
[2024-05-16 20:00] VITALS: BP 112/65; PULSE 86; RESP 20; TEMP 98; O2SAT 97
[2024-05-16] MEDS: LORazepam 1 MG tablet PO SCH (20:41)
[2024-05-16] MEDS: OLANZAPINE 5 MG TABLET PO SCH (20:42)
[2024-05-16] MEDS: mirtazapine 15mg tablet PO SCH (20:42)
[2024-05-16] MEDS: divalproex sod 125mg sprinkle cap PO SCH (20:42)
[2024-05-17 07:30] VITALS: BP 96/66; PULSE 75; RESP 12; TEMP 98.7; O2SAT 95
[2024-05-17] MEDS: ESCITALOPRAM 10 mg tablet 10 MG TABLET PO SCH (07:40)
[2024-05-17 08:15] LABS: CHOL/HDL RATIO 2.1 (0.00-4.99); CHOLESTEROL 137 MG/DL (0-200); HDL CHOLESTEROL 64 MG/DL (35-60); LDL CHOLESTEROL 68 MG/DL (50-100); TRIGLYCERIDES 42 MG/DL (20-135)
[2024-05-17 08:36] LABS: HEMOGLOBIN A1C 5.4 % (4.5-6.2)
[2024-05-17] MEDS: acetaminophen 325mg tablet PO PRN (16:11)
[2024-05-17 19:24] VITALS: BP 121/72; PULSE 94; RESP 18; TEMP 98; O2SAT 97
[2024-05-17 20:00] VITALS: RESP 18; O2SAT 97
[2024-05-17] MEDS: mirtazapine 15mg tablet PO SCH (20:19)
[2024-05-17] MEDS ORDERED: mirtazapine 15mg tablet PO SCH (21:00)
[2024-05-18 07:00] VITALS: RESP 18; O2SAT 97
[2024-05-18 08:00] VITALS: BP 98/58; PULSE 80; RESP 18; TEMP 98.8; O2SAT 97
[2024-05-18 16:37] LABS: BILIRUBIN,URINE NEGATIVE (Neg); CLARITY,URINE SLIGHTLY CLOUDY (Clear); COLOR,URINE YELLOW (Yellow); GLUCOSE, URINE NEGATIVE (Neg); KETONES,URINE NEGATIVE (Neg); LEUKOCYTE ESTERASE ,URINE MODERATE (Neg); NITRITES, URINE POSITIVE (Neg); OCCULT BLOOD,URINE SMALL (Neg); PH,URINE 7.5 (4.8-8.0); PROTEIN,URINE 100 mg/dl (Neg); UROBILINOGEN,URINE 0.2 E.U/dL (0.2-1.0)
[2024-05-18 16:47] LABS: UA COLLECTION TYPE CLN CATCH MIDSTREAM
[2024-05-18 16:48] LABS: WBC,URINE TNTC /HPF (0-4)
[2024-05-18 16:49] LABS: BACTERIA,URINE 2+ /HPF (Neg); MUCUS STRANDS FEW /LPF (Neg); SQUAMOUS EPITHELIAL CELL,UR FEW /LPF (FEW); WBC CLUMPS,URINE MODERATE /HPF (NEGATIVE)
[2024-05-18 19:00] VITALS: BP 103/49; PULSE 97; RESP 14; TEMP 97.9; O2SAT 99
[2024-05-18] MEDS: docusate sod 100mg capsule PO SCH (20:17)
[2024-05-18] MEDS: ciprofloxacin 250mg tablet PO SCH (20:17)
[2024-05-19 07:00] VITALS: RESP 16; O2SAT 95
[2024-05-19] MEDS: acetaminophen 325mg tablet PO PRN (07:26)
[2024-05-19 08:00] VITALS: BP 97/54; PULSE 93; RESP 12; TEMP 98.2; O2SAT 94
[2024-05-19] MEDS: magnesium hydroxide 30ml (MOM) UD suspension PO PRN (13:08)
[2024-05-19 19:00] VITALS: RESP 18; O2SAT 96
[2024-05-19 19:56] VITALS: BP 99/54; PULSE 89; RESP 18; TEMP 98.9; O2SAT 96
[2024-05-20 07:00] VITALS: BP 102/65; PULSE 80; RESP 16; TEMP 98.5; O2SAT 98
[2024-05-20 19:00] VITALS: BP 117/59; PULSE 84; RESP 16; TEMP 98.7; O2SAT 95
[2024-05-21 07:00] VITALS: RESP 16; O2SAT 96
[2024-05-21 08:00] VITALS: BP 118/63; PULSE 75; RESP 16; O2SAT 96
[2024-05-21 19:00] VITALS: RESP 14; O2SAT 95
[2024-05-21 19:44] VITALS: BP 135/68; PULSE 93; RESP 14; TEMP 99.1; O2SAT 95
[2024-05-21 22:00] VITALS: TEMP 98.1
[2024-05-22 07:00] VITALS: RESP 16; O2SAT 95
[2024-05-22 08:00] VITALS: BP 124/71; PULSE 77; RESP 16; TEMP 99.2; O2SAT 95
[2024-05-22 19:00] VITALS: RESP 16; O2SAT 96
[2024-05-22 19:47] VITALS: BP 108/63; PULSE 77; RESP 16; TEMP 98.5; O2SAT 96
[2024-05-23 07:00] VITALS: RESP 16; O2SAT 96
[2024-05-23 08:00] VITALS: BP 110/63; PULSE 70; RESP 16; TEMP 98.6; O2SAT 96
[2024-05-23 19:00] VITALS: BP 110/66; PULSE 75; RESP 18; TEMP 98.6; O2SAT 95
[2024-05-24 07:00] VITALS: RESP 16; O2SAT 94
[2024-05-24 08:00] VITALS: BP 113/60; PULSE 63; RESP 16; TEMP 97.7; O2SAT 94
[2024-05-24 19:00] VITALS: BP 122/68; PULSE 77; RESP 18; TEMP 98.9; O2SAT 96
[2024-05-25 07:00] VITALS: RESP 16; O2SAT 94
[2024-05-25 08:00] VITALS: BP 110/72; PULSE 62; RESP 16; TEMP 97.9; O2SAT 97
[2024-05-25 19:00] VITALS: RESP 16; O2SAT 96
[2024-05-25 20:00] VITALS: BP 121/55; PULSE 71; RESP 16; TEMP 98.8; O2SAT 96
[2024-05-26 07:00] VITALS: RESP 16; O2SAT 96
[2024-05-26 08:00] VITALS: BP 101/56; PULSE 69; RESP 16; TEMP 99.2; O2SAT 96
[2024-05-26] MEDS: LIDOcaine 5% patch TP ONE (17:35)
[2024-05-26 19:56] VITALS: BP 97/60; PULSE 69; RESP 16; TEMP 98.7; O2SAT 97
[2024-05-27 07:00] VITALS: RESP 20; O2SAT 97
[2024-05-27] MEDS: LIDOcaine 5% patch TP SCH (07:29)
[2024-05-27 08:00] VITALS: BP 100/51; PULSE 60; RESP 20; TEMP 97.3; O2SAT 97
[2024-05-27] MEDS: benzocaine (Anbesol) 12ml bottle MM PRN (16:42)
[2024-05-27 19:00] VITALS: BP 118/63; PULSE 80; RESP 16; TEMP 98; O2SAT 96
[2024-05-28 07:00] VITALS: BP 111/73; PULSE 61; RESP 16; TEMP 98.1; O2SAT 98
[2024-05-28 14:30] VITALS: BP 111/64; PULSE 81; O2SAT 96
[2024-05-28 19:50] VITALS: RESP 16; O2SAT 99
[2024-05-28 20:00] VITALS: BP 122/60; PULSE 71; RESP 18; TEMP 98.1; O2SAT 98
[2024-05-29 07:00] VITALS: RESP 16
[2024-05-29 08:00] VITALS: BP 100/64; PULSE 73; RESP 16; TEMP 98.3; O2SAT 96
[2024-05-29 19:00] VITALS: BP 108/56; PULSE 79; RESP 16; TEMP 97.5; O2SAT 96
[2024-05-30 07:00] VITALS: RESP 12; O2SAT 97
[2024-05-30 08:00] VITALS: BP 122/77; PULSE 74; RESP 14; TEMP 98.8; O2SAT 97
[2024-05-30 21:12] VITALS: BP 156/83; PULSE 87; RESP 18; TEMP 98.7; O2SAT 95
[2024-05-30 21:20] VITALS: BP 116/54; PULSE 85
[2024-05-30 21:24] VITALS: RESP 18; O2SAT 95
[2024-05-31 07:30] VITALS: BP 104/65; PULSE 63; RESP 16; TEMP 96.8; O2SAT 100
[2024-05-31 08:29] VITALS: RESP 16; O2SAT 100
[2024-05-31 19:00] VITALS: RESP 19; O2SAT 99
[2024-05-31 19:27] VITALS: BP 120/80; PULSE 70; RESP 19; TEMP 98; O2SAT 99
[2024-06-01 07:21] VITALS: BP 105/63; PULSE 69; RESP 12; TEMP 98; O2SAT 96
[2024-06-01 08:15] VITALS: RESP 12; O2SAT 96
[2024-06-01] MEDS: ibuprofen tablet 400 MG TABLET PO SCH (08:15)
[2024-06-01] MEDS: pantoprazole 40mg Tablet.DR PO SCH (08:15)
[2024-06-01 19:00] VITALS: RESP 18; O2SAT 96
[2024-06-01 19:51] VITALS: BP 103/63; PULSE 82; RESP 18; TEMP 98; O2SAT 96
[2024-06-02 07:17] VITALS: RESP 16
[2024-06-02 07:20] VITALS: BP 123/67; PULSE 71; RESP 16; TEMP 96.6; O2SAT 97
[2024-06-02 17:43] LABS: ALBUMIN 2.8 G/DL (3.4-5.0); ANION GAP 8 (8-16); BLOOD UREA NITROGEN 28 MG/DL (7-18); BUN/CREATININE RATIO 32.6 (10.0-20.0); CALCIUM 8.8 MG/DL (8.5-10.1); CHLORIDE 104 MMOL/L (99-107); CREATININE 0.86 MG/DL (0.40-0.90); GLUCOSE 101 MG/DL (70-104); POTASSIUM 4.4 MMOL/L (3.5-5.1); SODIUM 140 MMOL/L (135-145); TOTAL CARBON DIOXIDE 28.1 MMOL/L (24-32); eCRCL 42 ML/MIN; eGFR 65 ML/MIN
[2024-06-02 19:32] VITALS: RESP 16
[2024-06-02 20:00] VITALS: BP 127/70; PULSE 81; RESP 16; TEMP 99; O2SAT 81
[2024-06-03 08:00] VITALS: BP 113/74; PULSE 84; RESP 16; TEMP 98.2; O2SAT 95
[2024-06-03 19:52] VITALS: BP 101/68; PULSE 75; RESP 16; TEMP 97.7; O2SAT 96
[2024-06-04 07:00] VITALS: RESP 16; O2SAT 96
[2024-06-04 08:00] VITALS: BP 121/67; PULSE 74; RESP 16; TEMP 98; O2SAT 96
[2024-06-04] MEDS: ibuprofen 200mg tablet PO PRN (17:32)
[2024-06-04 19:10] VITALS: RESP 16
[2024-06-04] MEDS: amoxicillin 250mg capsule PO SCH (20:38)
[2024-06-04 20:53] VITALS: BP 121/77; PULSE 75; RESP 17; TEMP 98.2; O2SAT 95
[2024-06-05 07:00] VITALS: RESP 18; O2SAT 97
[2024-06-05 08:00] VITALS: BP 120/71; PULSE 74; RESP 18; TEMP 97.8; O2SAT 97
[2024-06-05 19:00] VITALS: RESP 18; O2SAT 97
[2024-06-05 20:00] VITALS: BP 132/70; PULSE 70; RESP 18; TEMP 97.2; O2SAT 97
[2024-06-06 07:00] VITALS: RESP 20; O2SAT 97
[2024-06-06 08:00] VITALS: BP 111/64; PULSE 73; RESP 20; TEMP 98.1; O2SAT 97
[2024-06-06 19:00] VITALS: RESP 16; O2SAT 97
[2024-06-06 19:39] VITALS: BP 124/63; PULSE 67; RESP 16; TEMP 98.4; O2SAT 96
[2024-06-07 07:30] VITALS: BP 119/72; PULSE 69; RESP 16; TEMP 98; O2SAT 96
[2024-06-07 19:50] VITALS: RESP 16
[2024-06-07 20:00] VITALS: BP 123/67; PULSE 77; RESP 16; TEMP 100; O2SAT 93
[2024-06-08 07:00] VITALS: RESP 18; O2SAT 94
[2024-06-08 08:00] VITALS: BP 142/65; PULSE 74; RESP 18; TEMP 98.8; O2SAT 94
[2024-06-08 19:00] VITALS: RESP 18; O2SAT 94
[2024-06-08] MEDS: mirtazapine 15mg tablet PO SCH (20:18)
[2024-06-08 20:52] VITALS: BP 119/62; PULSE 67; RESP 18; TEMP 98; O2SAT 94
[2024-06-09 07:00] VITALS: RESP 14; O2SAT 96
[2024-06-09 08:00] VITALS: BP 108/61; PULSE 64; RESP 14; TEMP 98.1; O2SAT 96
[2024-06-09 19:13] VITALS: RESP 18; O2SAT 97
[2024-06-09 20:00] VITALS: BP 122/59; PULSE 66; RESP 18; TEMP 98.9; O2SAT 97
[2024-06-10 07:00] VITALS: RESP 18; O2SAT 98
[2024-06-10 08:00] VITALS: BP 113/60; PULSE 65; RESP 18; TEMP 97.6; O2SAT 98
[2024-06-10 19:00] VITALS: RESP 18; O2SAT 97
[2024-06-10 19:22] VITALS: BP 132/69; PULSE 65; RESP 18; TEMP 97.4; O2SAT 97
[2024-06-11 07:00] VITALS: RESP 16; O2SAT 97
[2024-06-11 08:00] VITALS: BP 120/74; PULSE 66; RESP 16; TEMP 98.2; O2SAT 97
[2024-06-11 11:35] LABS: ALBUMIN 3.1 G/DL (3.4-5.0); ANION GAP 5 (8-16); BLOOD UREA NITROGEN 28 MG/DL (7-18); BUN/CREATININE RATIO 35.9 (10.0-20.0); CALCIUM 8.5 MG/DL (8.5-10.1); CHLORIDE 107 MMOL/L (99-107); CREATININE 0.78 MG/DL (0.40-0.90); GLUCOSE 92 MG/DL (70-104); POTASSIUM 4.7 MMOL/L (3.5-5.1); SODIUM 142 MMOL/L (135-145); TOTAL CARBON DIOXIDE 30.2 MMOL/L (24-32); eCRCL 46 ML/MIN; eGFR 73 ML/MIN
[2024-06-11 19:05] VITALS: RESP 16; O2SAT 95
[2024-06-11 20:05] VITALS: BP 118/70; PULSE 74; RESP 16; TEMP 98.5; O2SAT 94
[2024-06-12 07:00] VITALS: RESP 16; O2SAT 96
[2024-06-12 08:00] VITALS: BP 121/76; PULSE 59; RESP 16; TEMP 97.8; O2SAT 96
[2024-06-12 19:00] VITALS: BP 119/68; PULSE 61; RESP 16; TEMP 98.1; O2SAT 95
[2024-06-13 06:00] VITALS: BP 114/69; PULSE 94; RESP 14; TEMP 98.1; O2SAT 95
[2024-06-13 07:00] VITALS: RESP 16; O2SAT 96
[2024-06-13 19:00] VITALS: RESP 16; O2SAT 97
[2024-06-13 19:17] VITALS: BP 144/73; PULSE 70; RESP 16; TEMP 98.7; O2SAT 97
[2024-06-13] MEDS: amoxicillin 250mg capsule PO ONE (22:27)
[2024-06-14 07:00] VITALS: RESP 18; O2SAT 96
[2024-06-14 08:00] VITALS: BP 115/65; PULSE 69; RESP 18; TEMP 98; O2SAT 96
[2024-06-14 19:36] VITALS: RESP 18; O2SAT 95
[2024-06-14 20:00] VITALS: BP 112/64; PULSE 68; RESP 20; TEMP 98.8; O2SAT 95
[2024-06-15 07:00] VITALS: RESP 16; O2SAT 96
[2024-06-15 08:00] VITALS: BP 130/60; PULSE 63; RESP 16; TEMP 97; O2SAT 96
[2024-06-15 19:00] VITALS: RESP 16; O2SAT 96
[2024-06-15 19:34] VITALS: BP 126/54; PULSE 60; RESP 16; TEMP 97.7; O2SAT 96
[2024-06-15 19:53] VITALS: BP 110/60
[2024-06-16 07:00] VITALS: RESP 18; O2SAT 97
[2024-06-16 08:00] VITALS: BP 116/68; PULSE 60; RESP 18; TEMP 97.8; O2SAT 97
[2024-06-16 20:00] VITALS: BP 119/58; PULSE 88; RESP 18; TEMP 98.1; O2SAT 95
[2024-06-17 07:30] VITALS: BP 122/63; PULSE 61; RESP 14; TEMP 97.6; O2SAT 14
[2024-06-17 19:00] VITALS: RESP 18; O2SAT 96
[2024-06-17 19:33] VITALS: BP 105/58; PULSE 65; RESP 18; TEMP 97.9; O2SAT 96
[2024-06-18 07:20] VITALS: BP 135/88; PULSE 71; RESP 16; TEMP 99.9; O2SAT 96
[2024-06-18 09:16] VITALS: RESP 16; O2SAT 95
[2024-06-18 19:00] VITALS: RESP 16; O2SAT 95
[2024-06-18 20:00] VITALS: BP 110/66; PULSE 74; RESP 16; TEMP 97.2; O2SAT 95
[2024-06-18] MEDS: mirtazapine 15mg tablet PO SCH (21:09)
[2024-06-19 07:00] VITALS: RESP 20; O2SAT 92
[2024-06-19 08:00] VITALS: BP 137/71; PULSE 70; RESP 20; TEMP 97.5; O2SAT 92
[2024-06-19] MEDS ORDERED: LORazepam 1 MG tablet PO PRN (08:50)
[2024-06-19 19:00] VITALS: RESP 16; O2SAT 94
[2024-06-19 19:58] VITALS: BP 123/65; PULSE 70; RESP 18; TEMP 98.3; O2SAT 95
[2024-06-20 07:00] VITALS: RESP 18; O2SAT 96
[2024-06-20 08:00] VITALS: BP 143/89; PULSE 78; RESP 18; TEMP 97.6; O2SAT 96
[2024-06-20 19:00] VITALS: BP 114/56; PULSE 70; RESP 18; TEMP 97; O2SAT 99
[2024-06-21 07:00] VITALS: RESP 16; O2SAT 94
[2024-06-21 08:00] VITALS: BP 123/78; PULSE 68; RESP 16; TEMP 97.2; O2SAT 94
[2024-06-21 19:25] VITALS: BP 138/77; PULSE 78; RESP 18; TEMP 98.3; O2SAT 96
[2024-06-22 07:00] VITALS: RESP 18; O2SAT 95
[2024-06-22 08:00] VITALS: BP 121/62; PULSE 69; RESP 18; TEMP 97.6; O2SAT 95
[2024-06-22 19:48] VITALS: BP 112/73; PULSE 81; RESP 20; TEMP 98; O2SAT 97
[2024-06-23 07:00] VITALS: RESP 16; O2SAT 94
[2024-06-23 08:00] VITALS: BP 130/66; PULSE 66; RESP 16; TEMP 97.7; O2SAT 94
[2024-06-23] MEDS: mag hydrox/Alum hydrox/simeth 30ml oral suspension PO PRN (08:53)
[2024-06-23 20:00] VITALS: BP 125/71; PULSE 76; RESP 16; TEMP 98.2; O2SAT 95
[2024-06-24 07:00] VITALS: RESP 15; O2SAT 96
[2024-06-24 08:00] VITALS: BP 128/77; PULSE 66; RESP 15; TEMP 97.3; O2SAT 96
[2024-06-24 19:00] VITALS: BP 131/68; PULSE 71; RESP 18; TEMP 98.3; O2SAT 97
[2024-06-25 07:16] VITALS: BP 118/75; PULSE 71; RESP 16; TEMP 97.9; O2SAT 94
[2024-06-25 19:28] VITALS: BP 127/68; PULSE 73; RESP 16; TEMP 97.9; O2SAT 96
[2024-06-26 07:30] VITALS: BP 137/74; PULSE 70; RESP 12; TEMP 97.7; O2SAT 95
[2024-06-26 19:00] VITALS: O2SAT 96
[2024-06-26 19:30] VITALS: BP 118/69; PULSE 77; RESP 16; TEMP 98.3; O2SAT 96
[2024-06-27 07:00] VITALS: RESP 18; O2SAT 95
[2024-06-27 08:00] VITALS: BP 111/74; PULSE 72; RESP 18; TEMP 97.2; O2SAT 95
[2024-06-27 19:00] VITALS: RESP 18; O2SAT 98
[2024-06-27 20:00] VITALS: BP 129/68; PULSE 79; RESP 18; TEMP 98.2; O2SAT 98
[2024-06-28 07:35] VITALS: RESP 16
[2024-06-28 07:40] VITALS: BP 129/67; PULSE 65; RESP 18; TEMP 97.3; O2SAT 95
[2024-06-28 19:09] VITALS: RESP 18
[2024-06-28 19:11] VITALS: RESP 18
[2024-06-28 20:00] VITALS: BP 137/62; PULSE 72; RESP 18; TEMP 97.5; O2SAT 96
[2024-06-29 07:30] VITALS: BP 151/80; PULSE 63; RESP 16; TEMP 97.4; O2SAT 96
[2024-06-29 07:35] VITALS: RESP 16; O2SAT 96
[2024-06-29 18:43] VITALS: RESP 16
[2024-06-29 19:42] VITALS: BP 101/60; PULSE 76; RESP 16; TEMP 97.2; O2SAT 94
[2024-06-30 06:41] VITALS: RESP 16
[2024-06-30 07:43] VITALS: BP 128/57; PULSE 73; RESP 16; TEMP 98.4; O2SAT 95
[2024-06-30 19:00] VITALS: RESP 16
[2024-06-30 20:00] VITALS: BP 114/65; PULSE 65; RESP 18; TEMP 98.8; O2SAT 95
[2024-07-01 07:00] VITALS: BP 123/76; PULSE 64; RESP 16; TEMP 97.4; O2SAT 96
[2024-07-01 19:00] VITALS: RESP 15; O2SAT 94
[2024-07-01 19:49] VITALS: BP 114/61; PULSE 75; RESP 15; TEMP 98.2; O2SAT 94
[2024-07-02 07:00] VITALS: BP 120/85; PULSE 68; RESP 16; TEMP 97.6; O2SAT 94
[2024-07-02 19:00] VITALS: RESP 18; O2SAT 97
[2024-07-02 20:00] VITALS: BP 124/62; PULSE 75; RESP 16; TEMP 97.6; O2SAT 94
[2024-07-03 07:00] VITALS: BP 151/73; PULSE 70; RESP 14; TEMP 97.2; O2SAT 95
== END 2024-07-03 10:19 | DRG 885 ==
LOC: ER 10:16 → UNDOADMIN 10:17 → ED HOLD 10:17 → ADULT MH 11:30 → ED HOLD 11:30 → ADULT MH 13:55
PROVIDERS: ADMIT Psychiatry & Neurology Psychiatry; ATTEND Psychiatry & Neurology Psychiatry
PROC: GZHZZZZ Group Psychotherapy (ICD-10-PCS; principal; 2024-05-16)
PROC: GZ51ZZZ Individual Psychotherapy, Behavioral (ICD-10-PCS; 2024-05-16)
DX: F25.9 Schizoaffective disorder, unspecified (principal); Z59.00 Homelessness unspecified; N39.0 Urinary tract infection, site not specified; I10 Essential (primary) hypertension; Z20.822 Contact with and (suspected) exposure to COVID-19; E78.00 Pure hypercholesterolemia, unspecified; E03.9 Hypothyroidism, unspecified; F31.9 Bipolar disorder, unspecified; K21.9 Gastro-esophageal reflux disease without esophagitis; G62.9 Polyneuropathy, unspecified; M79.601 Pain in right arm; M26.82 Posterior soft tissue impingement; M75.101 Unspecified rotator cuff tear or rupture of right shoulder, not specified as traumatic; M65.811 Other synovitis and tenosynovitis, right shoulder; Z90.710 Acquired absence of both cervix and uterus; Z88.2 Allergy status to sulfonamides; Z88.8 Allergy status to other drugs, medicaments and biological substances; Z79.899 Other long term (current) drug therapy; Z90.49 Acquired absence of other specified parts of digestive tract
CPT/HCPCS: 36415; 71045; 73030; 73060; 73222; 80048; 80061; 80305; 80320; 81001; 83036; 84443; 85025; 87077; 87081; 87088; 87186; 87811; 97110; 97116; 97161; 99285; A6250